=== PATIENT | female | born 1960 | race Asian ===

== ENCOUNTER 2024-11-16 17:49 | Emergency (ER) | payer OTHER ==
[2024-11-16] MEDS ORDERED: Proparacaine 0.5% Opth 15 ML BOT ONE (18:49)
[2024-11-16] MEDS ORDERED: Fluorescein Opthalmic Strip ONE (18:49)
== END 2024-11-16 19:37 | disposition home or self-care (01) ==
LOC: CSHERS 17:49
DX: H10.9 Unspecified conjunctivitis (principal); B96.89 Other specified bacterial agents as the cause of diseases classified elsewhere; I10 Essential (primary) hypertension
CPT/HCPCS: 99283